=== PATIENT | female | born 1970 | race Caucasian/White ===

== ENCOUNTER 2020-05-30 11:02 | Emergency (ER) | payer BC ==
[~2020-05-30] VITALS: Ht 157.5 cm; Wt 82.0 kg
[2020-05-30 13:21] VITALS: BP 137/86
== END 2020-05-30 13:23 | disposition home or self-care (01) ==
LOC: ER 11:46
DX: U07.1 COVID-19 (principal); E78.00 Pure hypercholesterolemia, unspecified
CPT/HCPCS: 87635; 99283; C9803